=== PATIENT | female | born 1995 | race Native Hawaiian/Other Pacific Islander ===

== ENCOUNTER 2021-08-08 11:57 | Outpatient (CLI) | payer BC | END 2021-08-08 19:12 | disposition home or self-care (01) | LOC: RAD 11:57 | PROVIDERS: ATTEND Internal Medicine | DX: M06.4 Inflammatory polyarthropathy (principal); M54.51 Vertebrogenic low back pain; M54.6 Pain in thoracic spine; M79.622 Pain in left upper arm ==